=== PATIENT | male | born 1975 | race American Indian/Alaskan Native ===

== ENCOUNTER 2017-05-13 11:01 | Inpatient (IN) | payer MEDICAID ==
[2017-05-13 12:44] LABS: Basophils % (Auto) 0.6 % (0.0-1.8); Eosinophils % (Auto) 3.1 % (0.0-4.3); Hematocrit 46.4 % (35.5-45.6); Hemoglobin 15.3 gm/dl (11.8-15.2); Mean Corpuscular HGB Conc 33 % (32-34); Mean Corpuscular Hemoglobin 30 pg (28-32); Mean Corpuscular Volume 92 fl (84-94); Platelet Count 245 K/mm3 (140-440); Red Blood Count 5.07 M/mm3 (3.65-5.03); Red Cell Distribution Width 13.9 % (13.2-15.2); White Blood Count 7.9 K/mm3 (4.5-11.0)
[2017-05-13 13:05] LABS: Bacteria,Urine 4+ /HPF (Negative); Bilirubin,Urine NEG (Negative); Blood,Urine MOD (Negative); Ketones,Urine NEG (Negative); Leukocyte Esterase,Urine MOD (Negative); Mucus,Urine FEW /HPF; Nitrite,Urine NEG (Negative); Protein,Urine <15 mg/dL mg/dL (Negative); Urobilinogen,Urine < 2.0 mg/dL (<2.0)
[2017-05-13 13:43] LABS: Anion Gap 20 mmol/L; Blood Urea Nitrogen 9 mg/dL (9-20); Calcium 9.5 mg/dL (8.4-10.2); Carbon Dioxide 23 mmol/L (22-30); Chloride 101.1 mmol/L (98-107); Glucose 89 mg/dL (75-100); Potassium 4.3 mmol/L (3.6-5.0); Sodium 140 mmol/L (137-145)
[2017-05-13 16:05] VITALS: BP 141/92
[2017-05-13] MEDS ORDERED: PERCOCET 5/325 PO ONE (16:27)
[2017-05-13] MEDS ORDERED: ROCEPHIN IM STA (16:30)
[2017-05-13] MEDS ORDERED: XYLOCAINE 1% MPF 5 mL INFILTRATI ONE (16:30)
--- NOTE | 2017-05-13 18:25 | Cat Scan Report ---
FINAL REPORT EXAM: CT ABDOMEN PELVIS WO CON HISTORY: large right hernia TECHNIQUE: CT abdomen and pelvis without contrast PRIORS: None. FINDINGS: No acute abnormalities identified in the visualized portion of the lung bases. Nonenhanced images no focal abnormality seen within the liver parenchyma. Spleen is normal in size. No peripancreatic inflammatory changes are observed. Right kidney demonstrates no evidence for hydronephrosis or nephrolithiasis There is a punctate nonobstructing upper pole left renal calculus. At the mid left kidney there are 2 rounded low-density foci measuring 1.4 and 0.97 centimeters in transverse diameter. These are incompletely characterized could be cystic however a followup routine ultrasound could be performed for further characterization. There is a very large right inguinal hernia present. The cecum, appendix and distal small bowel loops are present within the hernia sac. There is fluid seen inferior aspect of the hernia sac. Suspect incarcerated or strangulated small bowel. There are some moderately dilated bowel loops within the lower pelvis which may reflect obstruction at the level of the hernia. IMPRESSION: Very large right inguinal hernia containing the cecum, appendix and distal small bowel loops. There is suspicion for obstruction at the level of hernia. Suspect incarcerated or strangulated small-bowel loops within the hernia sac. Low-density foci noted within the left kidney these are incompletely characterized. Followup routine ultrasound could be performed for further characterization
--- NOTE | 2017-05-13 18:42 | Ultrasound Report ---
FINAL REPORT EXAM: US TESTICULAR DOPPLER COMP HISTORY: pain and swelling TECHNIQUE: Ultrasound scrotum PRIORS: Correlated with today's CT of the abdomen and pelvis FINDINGS: Right testicle is 4.8 x 1.7 x 3.5 centimeters. There is normal homogeneous echotexture. Normal vascular flow seen on pulsed and color Doppler evaluation. No evidence for epididymal enlargement. Left testicle is 5.3 x 1.5 x 4.0 centimeters. There is normal echotexture. Normal vascular flow seen on pulsed and color Doppler evaluation. No evidence for epididymal enlargement. There is no evidence for hydrocele or varicocele Again identified is a very large right inguinal hernia as further described on today's CT of the abdomen and pelvis IMPRESSION: Normal sonographic appearance of the testicles Very large right inguinal hernia further described on today's CT abdomen and pelvis
[2017-05-13] MEDS ORDERED: LEVAQUIN 500MG/100ML 500 MG/100 ML BAG IV ONE (19:12)
--- NOTE | 2017-05-13 19:38 | Emergency Department Report ---
Entered by KAIN WALLACE, acting as scribe for FRANCK DARBY PA. ED Male HPI - General Chief complaint: Urogenital-Male Stated complaint: GROIN PAIN Time Seen by Provider: 05/13/17 15:57 Source: patient, family Mode of arrival: Ambulatory Limitations: No Limitations - History of Present Illness Initial comments: 41 year old male with no significant PMHx presents to ED with c/o scrotum pain for 1 year and lower pelvic pain for 1 month. Patient rates 10/10 in severity and aggravated while moving. Patient reports swollen scrotum but, denies nausea , vomiting, dysuria, hematuria, fever, chills, urgency, and frequency. NKDA. Patient said that he is swollen area to his testicle for over a year but family member report that it's been over 5 years. Complaint: testicle pain, groin pain -: month(s) (1 month for lower pelvic pain), year(s) (1) Location: right testicle Radiation: none Severity: moderate Severity scale (0 -10): 10 Quality: aching Consistency: constant Improves with: none Worsens with: movement denies: discharge, swelling, urinary retention, blood in urine, dysuria, fever, nausea/vomiting, incontinence - Related Data Sexually active: No Home Medications Medication Instructions Recorded Confirmed Last Taken No Known Home Medications [No 05/13/17 05/13/17 Unknown Reported Home Medications] Allergies Allergy/AdvReac Type Severity Reaction Status Date / Time No Known Allergies Allergy Unverified 05/13/17 11:52 ED Review of Systems Comment: All other systems reviewed and negative Constitutional: denies: chills, fever, weakness Respiratory: denies: cough, shortness of breath, SOB with exertion, SOB at rest , stridor, wheezing Cardiovascular: denies: chest pain, palpitations, edema, syncope Gastrointestinal: denies: abdominal pain, nausea, vomiting, diarrhea Genitourinary: testicular pain. denies: urgency, dysuria, frequency, hematuria , discharge Musculoskeletal: denies: back pain, joint swelling, arthralgia, myalgia Skin: denies: rash, lesions Neurological: denies: headache, weakness, numbness, paresthesias, confusion, abnormal gait, vertigo ED Past Medical Hx - Past Medical History Previous Medical History?: No - Surgical History Past Surgical History?: No - Family History Family history: hypertension - Social History Smoking Status: Current Every Day Smoker Substance Use Type: Alcohol, Marijuana - Medications Home Medications: Home Medications Medication Instructions Recorded Confirmed Last Taken Type No Known Home Medications [No 05/13/17 05/13/17 Unknown History Reported Home Medications] ED Physical Exam - General Limitations: No Limitations General appearance: alert, in no apparent distress - Head Head exam: Present: atraumatic, normocephalic - Eye Eye exam: Present: normal appearance, PERRL, EOMI. Absent: scleral icterus, conjunctival injection Pupils: Present: normal accommodation - ENT ENT exam: Present: normal exam, normal orophraynx, mucous membranes moist - Neck Neck exam: Present: normal inspection, full ROM. Absent: tenderness, meningismus, lymphadenopathy - Respiratory Respiratory exam: Present: normal lung sounds bilaterally. Absent: respiratory distress, wheezes, rales, rhonchi, stridor - Cardiovascular Cardiovascular Exam: Present: regular rate, normal rhythm, normal heart sounds. Absent: systolic murmur, diastolic murmur - GI/Abdominal GI/Abdominal exam: Present: soft, normal bowel sounds. Absent: distended, tenderness, guarding, rebound, rigid, diminished bowel sounds - exam: Present: testicular tenderness, scrotal swelling (right large hernia). Absent: urethral discharge External exam: Present: swelling, other (very large irreducible right inguinal hernia). Absent: lacerations, ecchymosis - Expanded Exam Expanded Male exam: Absent: phimosis, paraphimosis, penile swelling, induration, erythema, perineal induration, balanitis, priapism exam: Testicular Tenderness: Right (patient reports pain with palpation), Inguinal Hernia: Right (very large inguinal hernia that is not reducible), Cremasteric Reflex Present: Left, Right - Extremities Exam Extremities exam: Present: normal inspection, full ROM, normal capillary refill. Absent: tenderness, pedal edema, joint swelling, calf tenderness - Back Exam Back exam: Present: normal inspection, full ROM. Absent: tenderness, CVA tenderness (R), CVA tenderness (L), muscle spasm, paraspinal tenderness, vertebral tenderness, rash noted - Neurological Exam Neurological exam: Present: alert, oriented X3, normal gait, reflexes normal. Absent: motor sensory deficit - Psychiatric Psychiatric exam: Present: normal affect, normal mood - Skin Skin exam: Present: warm, dry, intact, normal color. Absent: rash ED Course Vital Signs 05/13/17 05/13/17 05/13/17 11:56 16:04 17:38 Temperature 98.2 F 98.6 F Pulse Rate 73 84 Respiratory 17 20 18 Rate Blood Pressure 145/101 Blood Pressure 141/92 [Right] O2 Sat by Pulse 100 99 Oximetry - Reevaluation(s) Reevaluation #1: 05/13/17 18:57 She given Percocet 5/325 2 tablets emergency room for pain to right scrotal area and hernia. Patient also given Rocephin 1 g IM for urinary tract infection 05/13/17 18:57 Reevaluation #2: 05/13/17 18:58 I attempted to reduce hernia without any success ED Medical Decision Making - Lab Data Result diagrams: 05/13/17 12:29 05/13/17 12:29 Lab Results 05/13/17 05/13/17 05/13/17 Range/Units 12:13 12:29 12:29 WBC 7.9 (4.5-11.0) K/mm3 RBC 5.07 H (3.65-5.03) M/mm3 Hgb 15.3 H (11.8-15.2) gm/dl Hct 46.4 H (35.5-45.6) % MCV 92 (84-94) fl MCH 30 (28-32) pg MCHC 33 (32-34) % RDW 13.9 (13.2-15.2) % Plt Count 245 (140-440) K/mm3 Lymph % (Auto) 32.7 (13.4-35.0) % [place] % (Auto) 6.9 (0.0-7.3) % Eos % (Auto) 3.1 (0.0-4.3) % Baso % (Auto) 0.6 (0.0-1.8) % Lymph # 2.6 (1.2-5.4) K/mm3 [place] # 0.5 (0.0-0.8) K/mm3 Eos # 0.2 (0.0-0.4) K/mm3 Baso # 0.0 (0.0-0.1) K/mm3 Seg Neutrophils % 56.7 (40.0-70.0) % Seg Neutrophils # 4.5 (1.8-7.7) K/mm3 Sodium 140 (137-145) mmol/L Potassium 4.3 (3.6-5.0) mmol/L Chloride 101.1 (98-107) mmol/L Carbon Dioxide 23 (22-30) mmol/L Anion Gap 20 mmol/L BUN 9 (9-20) mg/dL Creatinine 0.6 L (0.8-1.5) mg/dL Estimated GFR > 60 ml/min BUN/Creatinine Ratio 15.00 % Glucose 89 (75-100) mg/dL Lactic Acid (0.7-2.0) mmol/L Calcium 9.5 (8.4-10.2) mg/dL Urine Color Yellow (Yellow) Urine Turbidity Clear (Clear) Urine pH 6.0 (5.0-7.0) Ur Specific [place] 1.016 (1.003-1.030) Urine Protein <15 mg/dl (Negative) mg/dL Urine Glucose (UA) 50 (Negative) mg/dL Urine Ketones Neg (Negative) mg/dL Urine Blood Mod (Negative) Urine Nitrite Neg (Negative) Urine Bilirubin Neg (Negative) Urine Urobilinogen < 2.0 (<2.0) mg/dL Ur Leukocyte Esterase Mod (Negative) Urine WBC (Auto) 10.0 H (0.0-6.0) /HPF Urine RBC (Auto) 7.0 (0.0-6.0) /HPF Urine Bacteria (Auto) 4+ (Negative) /HPF Urine Mucus Few /HPF 05/13/17 Range/Units 17:37 WBC (4.5-11.0) K/mm3 RBC (3.65-5.03) M/mm3 Hgb (11.8-15.2) gm/dl Hct (35.5-45.6) % MCV (84-94) fl MCH (28-32) pg MCHC (32-34) % RDW (13.2-15.2) % Plt Count (140-440) K/mm3 Lymph % (Auto) (13.4-35.0) % [place] % (Auto) (0.0-7.3) % Eos % (Auto) (0.0-4.3) % Baso % (Auto) (0.0-1.8) % Lymph # (1.2-5.4) K/mm3 [place] # (0.0-0.8) K/mm3 Eos # (0.0-0.4) K/mm3 Baso # (0.0-0.1) K/mm3 Seg Neutrophils % (40.0-70.0) % Seg Neutrophils # (1.8-7.7) K/mm3 Sodium (137-145) mmol/L Potassium (3.6-5.0) mmol/L Chloride (98-107) mmol/L Carbon Dioxide (22-30) mmol/L Anion Gap mmol/L BUN (9-20) mg/dL Creatinine (0.8-1.5) mg/dL Estimated GFR ml/min BUN/Creatinine Ratio % Glucose (75-100) mg/dL Lactic Acid 0.60 L (0.7-2.0) mmol/L Calcium (8.4-10.2) mg/dL Urine Color (Yellow) Urine Turbidity (Clear) Urine pH (5.0-7.0) Ur Specific [place] (1.003-1.030) Urine Protein (Negative) mg/dL Urine Glucose (UA) (Negative) mg/dL Urine Ketones (Negative) mg/dL Urine Blood (Negative) Urine Nitrite (Negative) Urine Bilirubin (Negative) Urine Urobilinogen (<2.0) mg/dL Ur Leukocyte Esterase (Negative) Urine WBC (Auto) (0.0-6.0) /HPF Urine RBC (Auto) (0.0-6.0) /HPF Urine Bacteria (Auto) (Negative) /HPF Urine Mucus /HPF Urine culture pending - Radiology Data Radiology results: report reviewed Ultrasound of scrotum revealed normal sonographic appearance of testicles. Very large right inguinal hernia. CT scan of the abdomen and pelvis reveals very large right inguinal hernia containing the cecum, appendix and distal small bowel loops. There is suspicion for obstruction at the level of hernia. Suspect incarcerated or strangulated small bowel loop within the hernia sac - Medical Decision Making ED course: Patient here report that he has swollen scrotum on the right side 1- 2 years and lower pelvic pain 1-2 months. Family reports that patient had swelling for over 5 years. He reports that he is having in pain to his right scrotal area. Denies any medical problems. Patient was given Percocet 5/325 mg emergency room to manage pain. This eased his pain down to 3 out of 10. Patient has no fever. I attempted to reduce hernia without any success. I spoke with Dr. Avila with the attending DrAlana and CT scan ultrasound obtained. Patient given Rocephin 1 g IM due to acute cystitis with hematuria. I spoke with patient and family regarding CT scan and ultrasound results, labs including urinalysis. Eyes spoke with family and patient regarding need for admission to have surgery in the morning and they voiced understanding. Dr. Olson notified and he will admit patient to the hospital. Patient to start an IV fluid and IV antibiotic. Bridge order started and Dr. Olson will placein other orders. Labs/diagnostics: Ultrasound of the testicle shows normal sonographic appearance of the testicles. Very large right inguinal hernia. CT scan of the abdomen and pelvis without contrast showed very large inguinal hernia containing the cecum, appendix and distal small bowel loops. There is suspicion for obstruction at the level of hernia. Suspect incarcerated or strangulated small bowel loop within the hernia sac CBC stable except patient with hemoconcentration, white count 7.9, active acid is stable at 0.6, BMP stable. Urinalysis normal except Mod blood, positive white count and positive leukocyte Estrace, bacteria at 4+. Culture sent and pending Assessment/plan 1. Incarcerated versus strangulated right inguinal hernia UA shows 2: Suspicion for obstruction at the level of right inguinal hernia account 7.9 UA 3 acute cystitis with hematuria 4.pelvic pain Patient to be admitted inpatient for surgery in the morning. Dr. Olson notified and consulted Patient started on IV fluid D5 half-normal saline at 125 an hour, he received Rocephin 1 g IM initially in ED, patient to start on Levaquin 500 mg IV daily Pain control, NG tube to suction Bridge orders initiated ED Disposition Clinical Impression: Acute cystitis with hematuria, Incarcerated right inguinal hernia, Pelvic pain in male Bowel obstruction Qualifiers: Intestinal obstruction type: unspecified Qualified Code(s): K56.60 - Unspecified intestinal obstruction Disposition: OP ADMIT IP TO THIS HOSP Is pt being admited?: Yes Does the pt Need Aspirin: No Condition: Stable Referrals: PRIMARY CARE,MD [Primary Care Provider] - 3-5 Days This documentation as recorded by the scribe,WALLACE,KAIN,accurately reflects the service I personally performed and the decisions made by me,FRANCK DARBY, PA.
[2017-05-13] MEDS ORDERED: D5/0.45NS 1,000 ML IV SCH (20:00)
--- NOTE | 2017-05-13 20:08 | Admit Criteria Form ---
Admission Criteria Documentation: INTESTINAL OBSTRUCTION Clinical Indications for Admission to Inpatient Care (Place 'X' for any and all applicable criteria): Admission is indicated for ANY ONE of the following (1)(2)(3)(4)(5): [X]I. Partial bowel obstruction [ ]II. Complete bowel obstruction Extended stay beyond goal length of stay may be needed for(1)(4)(12(: [ ]a) Identified etiology (eg, hernia, volvulus, cancer with obstruction) requiring intervention [ ]b) Gallstone ileus [ ]c) Surgical intervention [ ]d) Acute comorbid illness (eg, electrolyte imbalance, hypovolemia, renal failure) The original [employer] content created by [employer] has been revised. The portions of the content which have been revised are identified through the use of italic text or in bold, and [facility] has neither reviewed nor approved the modified material. All other unmodified content is copyright [employer]. Please see references footnoted in the original [employer] edition 2016 Admission Criteria Met: Yes
== END 2017-05-13 22:00 | disposition left against medical advice (07) | DRG 394 ==
LOC: ED 11:01 → 2B-SURG 19:15
PROVIDERS: ADMIT Surgery; ATTEND Surgery
DX: K40.30 Unilateral inguinal hernia, with obstruction, without gangrene, not specified as recurrent (principal); N30.01 Acute cystitis with hematuria; F17.210 Nicotine dependence, cigarettes, uncomplicated; Z82.49 Family history of ischemic heart disease and other diseases of the circulatory system
CPT/HCPCS: 36415; 74176; 80048; 81001; 82140; 85025; 87086; 93975; 96372; J0696